=== PATIENT | male | born 1965 | race Caucasian/White ===

== ENCOUNTER 2016-12-01 13:08 | Emergency (ER) | payer BC ==
[2016-12-01 13:27] VITALS: BP 169/102
--- NOTE | 2016-12-01 13:38 | UC ---
Cardiac HPI - HPI Summary HPI Summary: The patient comes in today for: 1. Chest pain: Onset: Since last night. Palliative/provocative: Taking a deep breath--gets worse--gets sharp Quality: Ache last night--ache, but now a "pulled muscle." Region: Left chest with no radiation. Severity: 4/10 at this time. Time: Constant Associated symptoms: Fevers: None. Cough: None now. Dyspnea: None. Previous lung disease: Asthma, but he does not use the inhaler much. Previous heart disease: None. Previous blood clotting problems: None. CAD risk factors: HTN: (-), DM: (-), Fm Hx: (-), smoker: (+), Cholesterol: (? ) * - History of Current Complaint Chief Complaint: UCChestPain Stated Complaint: CHEST PAIN,HURTS TO BREATHE Time Seen by Provider: 12/01/16 13:20 Hx Obtained From: Patient - Allergy/Home Medications Allergies/Adverse Reactions: Allergies Allergy/AdvReac Type Severity Reaction Status Date / Time Penicillins AdvReac Severe Vomiting Verified 12/01/16 13:19 Home Medications: Home Medications NK [No Home Medications Reported] 12/01/16 [History Confirmed 12/01/16] PMH/Surg Hx/FS Hx/Imm Hx Previously Healthy: No Endocrine History Of: Denies: Diabetes, Thyroid Disease, Hyperthyroidism, Hypothyroidism, Dyslipidemia Cardiovascular History Of: Denies: Cardiac Disorders, Hypertension, Pacemaker/ICD, Myocardial Infarction , Congestive Heart Failure, Atrial Fibrillation, Deep Vein Thrombosis, Bleeding Disorders Respiratory History Of: Reports: Asthma Denies: COPD, Bronchitis, Pneumonia, Pulmonary Embolism GI/ History Of: Denies: Gastroesophageal Reflux, Ulcer, Gastrointestinal Bleed, Gall Bladder Disease, Kidney Stones, Diverticulitis, Renal Disease, Urosepsis Neurological History Of: Denies: TIA, CVA, Dementia, Seizures, Migraine Psychological History Of: Denies: Anxiety, Depression, Bipolar Disorder, Schizophrenia, Post Traumatic Stress Disorder Cancer History Of: Denies: Lung Cancer, Colorectal Cancer, Breast Cancer, Prostate Cancer, Cervical Cancer Other History Of: Negative For: HIV, Hepatitis B, Hepatitis C, Anticoagulant Therapy - Surgical History Surgical History: Yes Surgery Procedure, Year, and Place: 1990 [facility]AL TUNNEL REPAIR BILATERALLY/ RT HAND REPAIR [facility]. ORIF L THUMB [facility]. 2001 RT HAND INJURY [facility]. left ankle tendon repair - Family History Known Family History: Positive: Cardiac Disease, Hypertension - Social History Occupation: Employed Full-time Alcohol Use: Occasionally Substance Use Type: None Smoking Status (MU): Heavy Every Day Tobacco Smoker Type: Cigarettes Amount Used/How Often: 1 PPD Length of Time of Smoking/Using Tobacco: 25 years Have You Smoked in the Last Year: Yes - Immunization History Most Recent Influenza Vaccination: Not UTD Review of Systems Constitutional: Negative Skin: Negative Eyes: Negative ENT: Negative Respiratory: Negative Cardiovascular: Chest Pain Gastrointestinal: Negative Genitourinary: Negative All Other Systems Reviewed And Are Negative: Yes Physical Exam Triage Information Reviewed: Yes Appearance: Well-Appearing, No Pain Distress, Well-Nourished Vital Signs: Initial Vital Signs Temp 98.1 F 12/01/16 13:21 Pulse 77 12/01/16 13:21 Resp 18 12/01/16 13:21 BP 169/102 12/01/16 13:21 Pulse Ox 97 12/01/16 13:21 Blood pressure (prior to discharge): sitting, large cuff, left arm: 152/82 Vital Signs Reviewed: Yes Eyes: Positive: Conjunctiva Clear. Negative: Discharge ENT: Positive: Hearing grossly normal. Negative: Pharyngeal erythema, Nasal congestion, Nasal drainage, TM bulging, TM dull, TM red, Tonsillar swelling, Tonsillar exudate Dental: Positive: Gross Decay/Caries @. Negative: Dental Fracture @ Neck: Positive: Supple, No Lymphadenopathy. Negative: Nuchal Rigidity Respiratory: Positive: Chest non-tender, Lungs clear, No respiratory distress, No accessory muscle use. Negative: Crackles, Wheezing Cardiovascular: Positive: RRR, No Murmur Abdomen Description: Positive: Nontender, No Organomegaly, Soft. Negative: Distended, Guarding Musculoskeletal: Positive: Strength Intact, ROM Intact, No Edema, Other: - He has tenderness at the upper left sternal border. Pressing on this area does totally reproduce his chest pain. Neurological: Positive: Alert, Muscle Tone Normal Psychological: Positive: Age Appropriate Behavior, Consolable Skin: Negative: rashes, breakdown Diagnostics - Laboratory Diagnostic Studies Completed/Ordered: EKG: Rate: 78. Rhythm: Sinus. Ectopy: None. Acute changes: None. - Radiology No standard instances Xray Interpretation: No Acute Changes Radiology Interpretation Completed By: Radiologist - Assessment/Plan Course Of Treatment: Patient was told that his chest pain was most likely due to costochondritis. He is encouraged to take NSAIDs for relief. - Clinical Impression Provider Diagnoses: Chest wall pain. Discharge - Discharge Plan Condition: Stable Disposition: HOME Patient Education Materials: Chest Wall Pain (ED) Referrals: Bishnu Walton MD [Primary Care Provider] - 1 Week (Please see your primary care provider in about three days to a week to see how well you are doing. If you don't have a primary care provider, please contact the physician referral service. If you can't get in timely, please you may come back to see us until you can. If you get worse, please be seen sooner by us or the ER.)
--- NOTE | 2016-12-01 14:06 | RAD ---
INDICATION: Chest pain COMPARISON: None TECHNIQUE: PA and lateral dual-energy views were obtained. FINDINGS: Bones/Soft Tissues: There are no acute bony findings. Cardiomediastinal: The cardiomediastinal silhouette is normal. Lungs: There are no infiltrates. Pleura: There are no pleural effusions. Other: None IMPRESSION: NO ACTIVE DISEASE.
== END 2016-12-01 14:57 | disposition home or self-care (01) ==
LOC: UCEAST 13:08
DX: R07.89 Other chest pain (principal); F17.210 Nicotine dependence, cigarettes, uncomplicated; Z88.0 Allergy status to penicillin
CPT/HCPCS: 71020; 93005; 99212; G0463

== ENCOUNTER 2016-12-02 11:39 | Emergency (ER) | payer BC ==
[2016-12-02] MEDS ORDERED: Aspirin Low Dose CHEW TAB* 81 MG PO ONE (12:06)
[2016-12-02] MEDS ORDERED: NS 0.9% 1000 ML* 1,000 ML IV ONE (12:07)
[2016-12-02 12:12] VITALS: BP 180/106
--- NOTE | 2016-12-02 16:04 | UC ---
guillermina Jasmine Timothy, scribed for Audrey Mead MD on 12/02/16 at 1154 . Cardiac HPI - HPI Summary HPI Summary: Derek Mckinney is a 50 yo male presenting to [facility] with 4/10 upper left chest pressure and left shoulder pain since 11/30/16, steadily increasing. He states pressure is worth with deep breaths or coughing. He denies SOB, nausea, diaphoresis, dizziness. He was seen last night for similar Sx, except the pain has now moved into his shoulder. He received a CXR last night, which showed no acute disease. His MHx includes asthma and tobacco use. - History of Current Complaint Stated Complaint: CHEST AND SHOULDER PAIN Time Seen by Provider: 12/02/16 12:01 Hx Obtained From: Patient Onset/Duration: Gradual Onset, Lasting Days Timing: Constant Initial Severity: Moderate Current Severity: Moderate Pain Intensity: 4 Chest Pain Location: Diffuse Character: Pressure/Squeezing Aggravating: Deep Breaths Alleviating: Nothing Associated Signs & Symptoms: Positive: Negative - Risk Factors Pulmonary Embolism Risk Factors: Negative Cardiac Risk Factors: Smoking AMI/ACS Risk Factors: Smoking - Allergy/Home Medications Allergies/Adverse Reactions: Allergies Allergy/AdvReac Type Severity Reaction Status Date / Time Penicillins AdvReac Severe Vomiting Verified 12/01/16 13:19 PMH/Surg Hx/FS Hx/Imm Hx Respiratory History Of: Reports: Asthma Cancer History Of: Denies: Lung Cancer, Colorectal Cancer, Breast Cancer, Prostate Cancer, Cervical Cancer Other History Of: Negative For: HIV, Hepatitis B, Hepatitis C, Anticoagulant Therapy - Surgical History Surgical History: Yes Surgery Procedure, Year, and Place: 1990 [facility] CAR[facility]AL TUNNEL REPAIR BILATERALLY/ RT HAND REPAIR [facility]. ORIF L THUMB [facility]. 2001 RT HAND INJURY [facility]. left ankle tendon repair - Family History Known Family History: Positive: Cardiac Disease, Hypertension - Social History Alcohol Use: Occasionally Substance Use Type: None Smoking Status (MU): Heavy Every Day Tobacco Smoker Type: Cigarettes Amount Used/How Often: 1 PPD Length of Time of Smoking/Using Tobacco: 25 years Have You Smoked in the Last Year: Yes - Immunization History Most Recent Influenza Vaccination: Not UTD Review of Systems Constitutional: Negative Skin: Negative Eyes: Negative ENT: Negative Respiratory: Cough Cardiovascular: Chest Pain Gastrointestinal: Negative Genitourinary: Negative Motor: Negative Neurovascular: Negative Musculoskeletal: Other: - left shoulder pain Neurological: Negative Psychological: Negative All Other Systems Reviewed And Are Negative: Yes Physical Exam Triage Information Reviewed: Yes Appearance: No Pain Distress, Well-Nourished, Ill-Appearing Vital Signs: Initial Vital Signs Temp 98.3 F 12/02/16 12:03 Pulse 77 12/02/16 12:03 Resp 18 12/02/16 12:03 BP 180/106 12/02/16 12:03 Pulse Ox 94 12/02/16 12:03 Vital Signs Reviewed: Yes Eyes: Positive: Conjunctiva Clear ENT: Positive: Hearing grossly normal Neck: Positive: Supple, Nontender Respiratory: Positive: Lungs clear, Normal breath sounds, No respiratory distress. Negative: Chest non-tender - reproducible CP at 3rd and 4th ribs Cardiovascular: Positive: RRR, No Murmur, Pulses Normal, Brisk Capillary Refill Abdomen Description: Positive: Nontender, No Organomegaly, Soft Bowel Sounds: Positive: Present Musculoskeletal: Positive: Strength Intact, ROM Intact Neurological: Positive: Alert, Muscle Tone Normal Psychological Exam: Normal Skin Exam: Normal Diagnostics - EKG Cardiac Rate: NL - NSR @ 81 BPM normal AV/IV conduction time, normal axis, no acute changes, no change compared to 12/01/16 Cardiac Rhythm: Sinus: Normal Re-Evaluation - Re-Evaluation First Eval Re-Evaluation Time: 12:13 Change: Unchanged Comment: Informed Pt of consult with [facility] and that ambulance will be arriving shortly. - Assessment/Plan Course Of Treatment: Derek Mckinney is a 50 yo male presenting to [facility] with CP and left shoulder pain. After clinical examination, review of his EKG, and review of his prior MHx, he will be transferred to [facility] for further evaluation and higher level of care. - Differential Diagnoses - Chest Pain Differential Diagnosis/HQI/PQRI: Acute NH, ACS, Angina, Chest Wall, GI Disease - Clinical Impression Provider Diagnoses: tobacco abuse disorder - Physician Notifications Discussed Patient Care With: 1204 - Dr. Morales ([facility]) - discussed Pt condition , agreed to see in [facility]. 1206 - [facility] amb[facility] - discussed Pt condition, requested emergency transport Instructed by Provider To: MD Will See In ED Discharge - Discharge Plan Condition: Stable Disposition: [facility]ANS [facility] Discharge Disposition Comment: transferred to [facility] for higher level of care Referrals: Bishnu Walton MD [Primary Care Provider] - The documentation as recorded by the guillermina bianchi Timothy accurately reflects the service I personally performed and the decisions made by me, Audrey Mead MD.
== END 2016-12-02 12:40 | disposition short-term general hospital (02) ==
LOC: UCEAST 11:39
DX: R07.89 Other chest pain (principal); M25.512 Pain in left shoulder; Z88.0 Allergy status to penicillin; F17.210 Nicotine dependence, cigarettes, uncomplicated
CPT/HCPCS: 93005; 96360; 99213; A9270-GY; G0463

== ENCOUNTER 2016-12-02 12:50 | Emergency (ER) | payer BC ==
[2016-12-02] MEDS ORDERED: methylPREDNISolone 125 MG* 2 ML VIAL IV ONE (12:59)
[2016-12-02 13:37] LABS: Hematocrit 44 % (42-52); Hemoglobin 14.7 g/dl (14.0-18.0); Mean Corpuscular HGB Conc 33 g/dl (31-36); Mean Corpuscular Hemoglobin 31 pg (27-31); Mean Corpuscular Volume 94 fL (80-94); Mean Platelet Volume 8 um3 (7.4-10.4); Red Blood Count 4.71 10^6/ul (4.0-5.4); Red Cell Distribution Width 13 % (10.5-15); White Blood Count 11.5 10^3/ul (3.5-10.8)
[2016-12-02 13:55] LABS: Albumin 4.1 g/dL (3.2-5.2); BUN/Creatinine Ratio 12.7 (8-20); Calcium 9.2 mg/dL (8.6-10.3); EGFR African American 134.1 (>60); EGFR Non-African American 104.2 (>60); Potassium 3.9 mmol/L (3.5-5.0); Total Bilirubin 0.5 mg/dL (0.2-1.0); Total Protein 7.1 g/dL (6.4-8.9)
[2016-12-02 15:27] VITALS: BP 148/100
--- NOTE | 2016-12-02 21:30 | ED ---
I, Raj,Saleem, scribed for Cristobal Huizar MD on 12/02/16 at 1312 . HPI Chest Pain - HPI Summary HPI Summary: This 50 y/o male presents to ED from [facility] with chief complaint of left anterior CP radiating to LUE. Pain is constant and waxing and waning since 2 days ago. 1x ASA given [employer]. Pt had recent cold symptoms a week ago, and reports productive cough with white phlegm. Negative calf pain. Pt was last seen at [facility] yesterday and sent home with naproxen. Deep breath and cough make the pain worse. Arm movement makes the pain somewhat better per pt. No primary care is established, and last pt's medical visit was ~ 2 years ago. FHx is positive for HTN to father. Hegative FHx of blood clots. He is a current smoker and rare drinker. No drug abuse. 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 Medical records from [facility] reviewed. CXR is normal with negative sign of PTX. EKG is SNR without ischemic changes. - History of Current Complaint Time Seen by Provider: 12/02/16 12:51 Hx Obtained From: Patient, EMS, Medical Records Onset/Duration: Started Days Ago - 2 hours, Atraumatic, Still Present Timing: Constant Chest Pain Location: Left Anterior Chest Pain Radiates: Yes Chest Pain Radiates To:: Arm - LUE Character: Cough, Productive Aggravating Factor(s): Deep Breaths, Other: - coughing Alleviating Factor(s): Nothing Associated Signs and Symptoms: Positive: Chest Pain, Productive Cough. Negative : Fever - Allergy/Home Medications Allergies/Adverse Reactions: Allergies Allergy/AdvReac Type Severity Reaction Status Date / Time Penicillins AdvReac Severe Vomiting Verified 12/01/16 13:19 PMH/Surg Hx/FS Hx/Imm Hx Endocrine/Hematology History: Denies: Hx Anticoagulant Therapy, Hx Diabetes, Hx Thyroid Disease Cardiovascular History: Denies: Hx Congestive Heart Failure, Hx Deep Vein Thrombosis, Hx Hypertension , Hx Myocardial Infarction, Hx Pacemaker/ICD Respiratory History: Reports: Hx Asthma Denies: Hx Chronic Obstructive Pulmonary Disease (COPD), Hx Lung Cancer, Hx Pneumonia, Hx Pulmonary Embolism GI History: Denies: Hx Gall Bladder Disease, Hx Gastrointestinal Bleed, Hx Ulcer, Hx Urosepsis History: Denies: Hx Kidney Stones, Hx Renal Disease Sensory History: Denies: Hx Contacts or Glasses, Hx Hearing Aid Opthamlomology History: Denies: Hx Contacts or Glasses Neurological History: Denies: Hx Dementia, Hx Migraine, Hx Seizures, Hx Transient Ischemic Attacks (TIA) Psychiatric History: Denies: Hx Anxiety, Hx Depression, Hx Panic Disorder, Hx Schizophrenia, Hx Bipolar Disorder - Surgical History Surgery Procedure, Year, and Place: 1990 [facility] CAR[facility]AL TUNNEL REPAIR BILATERALLY/ RT HAND REPAIR [facility]. ORIF L THUMB [facility]. 2001 RT HAND INJURY [facility]. left ankle tendon repair Hx Anesthesia Reactions: No Infectious Disease History: Denies: History Other Infectious Disease, Traveled Outside the [place] in Last 30 Days - Family History Known Family History: Positive: Hypertension - father Negative: Cardiac Disease - uncles with cardiac dz in late 60s. - Social History Occupation: Employed Full-time Alcohol Use: Occasionally Hx Substance Use: No Substance Use Type: Reports: None Hx Tobacco Use: Yes Smoking Status (MU): Heavy Every Day Tobacco Smoker Type: Cigarettes Amount Used/How Often: 1 PPD Length of Time of Smoking/Using Tobacco: 25 years Have You Smoked in the Last Year: Yes Review of Systems Negative: Fever Positive: Shortness Of Breath, Cough - productive cough with white phlegm Negative: Anxious, Depressed All Other Systems Reviewed And Are Negative: Yes Physical Exam - Summary Physical Exam Summary: General: Comfortable, pleasant, alert. Smiling. No distress HEENT: Moist mucosa Neck: soft, supple, no adenopathy, no edema Heart: S1, S2, RRR, no murmurs, rubs, or gallops. Chest wall tenderness at left anterior chest, clearly reproducible by palpation. Pt actually jumps when palpated. Lungs: Clear to auscultation, breathing comfortable, no wheezes or rales Abdominal: Soft, flat, nontender Extremities: No pitting edema, no calf tenderness. Negative Darrell's bilat. Neuro: Alert and oriented x 3 Psych: Logical, coherent Triage Information Reviewed: Yes Vital Signs On Initial Exam: Initial Vitals Temp Pulse Resp BP Pulse Ox 97.8 F 78 18 160/96 95 12/02/16 13:38 12/02/16 13:38 12/02/16 13:38 12/02/16 13:38 12/02/16 13:38 Vital Signs Reviewed: Yes Diagnostics - Vital Signs Vital Signs Temp Pulse Resp BP Pulse Ox 12/02/16 15:26 74 18 148/100 12/02/16 14:15 71 18 144/86 94 12/02/16 13:38 97.8 F 78 18 160/96 95 - Laboratory Lab Results: Lab Results 12/02/16 12/02/16 Range/Units 13:30 13:30 WBC 11.5 H (3.5-10.8) 10^3/ul RBC 4.71 (4.0-5.4) 10^6/ul Hgb 14.7 (14.0-18.0) g/dl Hct 44 (42-52) % MCV 94 (80-94) fL MCH 31 (27-31) pg MCHC 33 (31-36) g/dl RDW 13 (10.5-15) % Plt Count 235 (150-450) 10^3/ul MPV 8 (7.4-10.4) um3 Neut % (Auto) 73.4 (38-83) % Lymph % (Auto) 18.0 L (25-47) % Johnson % (Auto) 6.9 (1-9) % Eos % (Auto) 1.5 (0-6) % Baso % (Auto) 0.2 (0-2) % Absolute Neuts (auto) 8.4 H (1.5-7.7) 10^3/ul Absolute Lymphs (auto) 2.1 (1.0-4.8) 10^3/ul Absolute Monos (auto) 0.8 (0-0.8) 10^3/ul Absolute Eos (auto) 0.2 (0-0.6) 10^3/ul Absolute Basos (auto) 0 (0-0.2) 10^3/ul Absolute Nucleated RBC 0 10^3/ul Nucleated RBC % 0 Sodium 134 (133-145) mmol/L Potassium 3.9 (3.5-5.0) mmol/L Chloride 106 (101-111) mmol/L Carbon Dioxide 25 (22-32) mmol/L Anion Gap 3 (2-11) mmol/L BUN 10 (6-24) mg/dL Creatinine 0.79 (0.67-1.17) mg/dL Est GFR ( Amer) 134.1 (>60) Est GFR (Non-Af Amer) 104.2 (>60) BUN/Creatinine Ratio 12.7 (8-20) Glucose 86 (70-100) mg/dL Calcium 9.2 (8.6-10.3) mg/dL Total Bilirubin 0.50 (0.2-1.0) mg/dL AST 15 (13-39) U/L ALT 14 (7-52) U/L Alkaline Phosphatase 52 (34-104) U/L Troponin I 0.00 (<0.04) ng/mL Total Protein 7.1 (6.4-8.9) g/dL Albumin 4.1 (3.2-5.2) g/dL Globulin 3.0 (2-4) g/dL Albumin/Globulin Ratio 1.4 (1-3) Result Diagrams: 12/02/16 13:30 12/02/16 13:30 Lab Statement: Any lab studies that have been ordered have been reviewed, and results considered in the medical decision making process. Chest Pain Course/Dx - Course Assessment/Plan: He had continuous CP for 24+ hours. It is exacerbated by deep breah, palpation, coughing but does not improved by leaning forward. This follows a URI/viral 1 week ago. This is most consistent with costochondritis and mild pleurisy. No Hx or FHx of cardiac dz. Only risk factor is smoking. 160/ 96, and therefore pt may have undiagnosed HTN as well. Regardless, this does not sound like cardiac in anyway. 3 EKGs are taken and noted normal. Trop is normal as well. I don't believe that the repeat trop is necessary given the fact that the pt has had this symptoms for 24 hours. We considered cardaic etiologies, PTX, pericarditis, PE, PNA. PE is also unlikely given the fact that there is no evidence for DVT or SOB or tachycardia. He is to return to ED with any returning and/or worsening symptoms. Otherwiese he will attempt to find primary care doctor. - Chest Pain Differential Diagnosis/HQI/PQRI: Acute [place], Angina, Aortic Aneurysm, CHF, Chest Wall, GI Disease, Lower Respiratory Infection, Pulmonary Edema, Pulmonary Embolism - Diagnoses Provider Diagnoses: Costochondritis, acute Discharge - Discharge Plan Condition: Good Disposition: HOME Prescriptions: Methylprednisolone [Medrol Dosepak 4 MG*] 4 mg PO .SEE JULIO CESAR INSTRUCTION #21 tab Patient Education Materials: Costochondritis (ED) Forms: *Work Release Referrals: [facility] [Outside] Bishnu Walton MD [Primary Care Provider] - The documentation as recorded by the Raj bianchi Soohyun accurately reflects the service I personally performed and the decisions made by me, Cristobal Huizar MD.
== END 2016-12-02 15:26 | disposition home or self-care (01) ==
LOC: ED 12:50
DX: M94.0 Chondrocostal junction syndrome [Tietze] (principal); F17.210 Nicotine dependence, cigarettes, uncomplicated; Z88.0 Allergy status to penicillin
CPT/HCPCS: 36415; 80053; 84484; 85025; 93005; 96360; 99213; 99282; A9270-GY; G0463

== ENCOUNTER 2017-05-02 21:32 | Emergency (ER) | payer BC ==
[2017-05-02 21:43] VITALS: BP 194/96
[2017-05-02] MEDS ORDERED: ceFAZolin 500 MG VIAL(*) 500 MG VIAL IM ONE (22:03)
[2017-05-02] MEDS ORDERED: Tetan/Diph/Pertus SYR(Tdap)* 0.5 ML SYR(BOOSTRIX) use SYR IM ONE (22:04)
[2017-05-02] MEDS ORDERED: Lidocaine 1% MPF* 2 ML VIAL ONE (22:10)
--- NOTE | 2017-05-27 15:11 | UC ---
Coleman Jasmine Rebecca, scribed for Chasity Lindsey MD on 05/02/17 at 2148 . Lower Extremity/Ankle HPI - HPI Summary HPI Summary: Pt is a 16 y/o M who presents to [facility] c/o R knee pain, swelling and erythema. Sx began today at 1830 after showering and have been constant since onset. Associated pain is currently moderate, ranked 5/10 and characterized as an ache and stiffness. Sx aggravated and alleviated by nothing. Additionally c/o R ear pain and L arm rash for a few days. Denies sore throat, cough. Last Tetanus shot was >5 years ago, stating "it's been a while." No PMHx or FHx DM. Allergy to Penicillin causes N/V. - History of Current Complaint Chief Complaint: UCLowerExtremity Stated Complaint: KNEE SWELLING W PAIN,BUG BITE RASH ON ARM Time Seen by Provider: 05/02/17 21:46 Hx Obtained From: Patient Onset/Duration: Lasting Hours, Still Present Severity Currently: Moderate Pain Intensity: 5 Pain Scale Used: 0-10 Numeric Aggravating Factor(s): Nothing Alleviating Factor(s): Nothing - Allergies/Home Medications Allergies/Adverse Reactions: Allergies Allergy/AdvReac Type Severity Reaction Status Date / Time Penicillins AdvReac Severe Vomiting Verified 05/02/17 21:43 Home Medications: Home Medications Ibuprofen [Advil Migraine] 400 mg PO PRN 05/02/17 [History] PMH/Surg Hx/FS Hx/Imm Hx Previously Healthy: No Respiratory History: Asthma Other History Of: Negative For: HIV, Hepatitis B, Hepatitis C, Anticoagulant Therapy - Surgical History Surgical History: Yes Surgery Procedure, Year, and Place: 1990 [facility] CAR[facility]AL TUNNEL REPAIR BILATERALLY/ RT HAND REPAIR [facility]. ORIF L THUMB [facility]. 2001 RT HAND INJURY [facility]. left ankle tendon repair - Family History Known Family History: Positive: Hypertension - father Negative: Cardiac Disease - uncles with cardiac dz in late 60s. , Diabetes - Social History Alcohol Use: Occasionally Substance Use Type: None Smoking Status (MU): Heavy Every Day Tobacco Smoker Type: Cigarettes Amount Used/How Often: 1 PPD Length of Time of Smoking/Using Tobacco: 25 years Have You Smoked in the Last Year: Yes - Immunization History Most Recent Influenza Vaccination: Not UTD Review of Systems Constitutional: Negative Skin: Other - R knee erythema and swelling; LUE rash Eyes: Negative ENT: Ear Ache - Right Respiratory: Negative Cardiovascular: Negative Gastrointestinal: Negative Genitourinary: Negative Motor: Negative Neurovascular: Negative Musculoskeletal: Arthralgia - R knee pain Neurological: Negative Psychological: Negative All Other Systems Reviewed And Are Negative: Yes Physical Exam Triage Information Reviewed: Yes Appearance: Well-Appearing Vital Signs: Initial Vital Signs Temp 98.6 F 05/02/17 21:39 Pulse 85 05/02/17 21:39 Resp 18 05/02/17 21:39 BP 194/96 05/02/17 21:39 Pulse Ox 97 05/02/17 21:39 Vital Signs Reviewed: Yes Eye Exam: Normal ENT: Positive: Pharyngeal erythema, Other: - Fluid in the R ear Respiratory Exam: Normal Respiratory: Positive: Chest non-tender, Lungs clear, Normal breath sounds, No respiratory distress Cardiovascular Exam: Normal Cardiovascular: Positive: RRR, No Murmur, Pulses Normal, Brisk Capillary Refill Musculoskeletal: Positive: Strength Intact, ROM Intact, Other: - see below. L arm with small round ring shaped eruption, suspicous fungal Neurological Exam: Normal - Nonfocal, grossly intact Psychological Exam: Normal - Conversing easily and appropriately Skin: Positive: Other - Redness extending above the patella that is approx 19 cm length by 12 cm width and warm to touch Lower Extremity Course/Dx - Course Course Of Treatment: S/sx c/w cellulitis. No joint discomfort and able to walk. IM ancef in [facility]. Rx clindamycin. D/w pt need for f/u, and should go to ED for worse or new problems in the meantime. Questions answered to the best of my ability. - Differential Dx/Diagnosis Provider Diagnoses: Cellulitis. Ringworm left forearm Discharge - Discharge Plan Condition: Stable Disposition: HOME Prescriptions: Clotrimazole 1% CREAM* [Clotrimazole 1%*] 1 applic TOPICAL BID #1 tube Patient Education Materials: Cellulitis (ED) Referrals: [facility] [Outside] (Follow up next week, if possible. ) Additional Instructions: You received a 500 mg injection of antibiotic (Kefzol). Avoid rubbing alcohol, hydrogen peroxide and after-shave. Please follow up with your primary care provider next week if possible. Seek medical attention for worse or new problems in the meantime. The documentation as recorded by the scribe, DiFabio,Jacqueline accurately reflects the service I personally performed and the decisions made by me, Chasity Lindsey MD.
== END 2017-05-02 22:36 | disposition home or self-care (01) ==
LOC: UCEAST 21:32
DX: L03.115 Cellulitis of right lower limb (principal); B35.4 Tinea corporis; Z23 Encounter for immunization; J45.909 Unspecified asthma, uncomplicated; Z88.0 Allergy status to penicillin; F17.210 Nicotine dependence, cigarettes, uncomplicated
CPT/HCPCS: 90471; 96372; 99212; G0463; J0690

== ENCOUNTER 2017-05-03 12:18 | Emergency (ER) | payer BC ==
[2017-05-03] MEDS ORDERED: NS 0.9% 1000 ML* 1,000 ML IV ONE (13:47)
[2017-05-03] MEDS ORDERED: DOXYcycline IV* 100 MG in NS 0.9% 250 ML* 250 ML IVPB ONE (13:49)
[2017-05-03] MEDS ORDERED: NS 0.9% 250 ML* 250 ML ONE (14:17)
--- NOTE | 2017-05-03 14:29 | RAD ---
INDICATION: Pain and swelling at the right knee COMPARISON: None TECHNIQUE: 2 view radiograph of the right knee. FINDINGS: Depicted on the lateral view radiograph there is induration and thickening of the subcutaneous tissue overlying the knee joint. The visualized bones are well-corticated and properly aligned. The joint spaces are properly maintained. There is no definite intra-articular effusion. No fracture or dislocation is visualized. IMPRESSION: Lateral view of the right knee appendix thickening and induration of the subcutaneous tissue without radiographically apparent acute bony abnormality or large intra-articular joint effusion. If the patient's symptoms persist, follow-up imaging is recommended.
[2017-05-03 14:37] LABS: Hematocrit 45 % (42-52); Mean Corpuscular HGB Conc 34 g/dl (31-36); Mean Corpuscular Hemoglobin 32 pg (27-31); Mean Corpuscular Volume 96 fL (80-94); Mean Platelet Volume 9 um3 (7.4-10.4); Red Blood Count 4.67 10^6/ul (4.0-5.4); Red Cell Distribution Width 13 % (10.5-15); White Blood Count 14.2 10^3/ul (3.5-10.8)
[2017-05-03 14:52] LABS: Albumin 4.2 g/dL (3.2-5.2); BUN/Creatinine Ratio 14.3 (8-20); C Reactive Protein 32.5 mg/L (< 5.00); Calcium 9.3 mg/dL (8.6-10.3); EGFR African American 113.4 (>60); EGFR Non-African American 88.2 (>60); Potassium 4.1 mmol/L (3.5-5.0); Total Bilirubin 0.5 mg/dL (0.2-1.0); Total Protein 7.2 g/dL (6.4-8.9)
[2017-05-03 16:34] VITALS: BP 157/86
--- NOTE | 2017-05-03 18:35 | ED ---
Nicole Jasmine Auryana, scribed for Raul Cevallos MD on 05/03/17 at 1339 . Lower Extremity - HPI Summary HPI Summary: 51 year old male presents with increased erythema and swelling of the right knee starting 1 day ago worse since today. Patient was seen at [facility] yesterday for the same complaint and was given a tetanus vaccine, dose of ABX, and sent home with an ABX script. He has taken 2 doses of the ABX and reports increased swelling and erythema since then. He reports pain with flexion/extension of the knee and has developed a low grade fever today. He reports that he just noticed a red conrad just below the knee last night but reports that he hadn't noticed it before. He denies any chills, cough, rhinorrhea, sore throat, abdominal pain, or any joint pain. Patient reports that he is unsure of the source of possible infection. He denies any recent tick bites but does state that [place] and has pets. He also states that he is currently being treated for ring worm on his left arm. PMHx is significant for asthma. SHx is significant for tobacco use. - History of Current Complaint Chief Complaint: EDExtremityLower Stated Complaint: RT LEG PAIN/SWELLING/INFECTION Time Seen by Provider: 05/03/17 13:07 Hx Obtained From: Patient Mechanism Of Injury: Unknown Onset of Pain: Days - 1 Onset/Duration: Still Present - today Severity Initially: Mild Severity Currently: Moderate Pain Intensity: 4 Pain Scale Used: 0-10 Numeric Timing: Constant Location: Is Discrete @ - right knee Associated Signs And Symptoms: Positive: Swelling - increased, Redness - increased, Fever - low grade, Knee Pain - increased right knee pain Aggravating Factor(s): Movement - flexion and extension Able to Bear Weight: Yes - with pain - Allergies/Home Medications Allergies/Adverse Reactions: Allergies Allergy/AdvReac Type Severity Reaction Status Date / Time Penicillins AdvReac Severe Vomiting Verified 05/02/17 21:43 PMH/Surg Hx/FS Hx/Imm Hx Endocrine/Hematology History: Denies: Hx Anticoagulant Therapy, Hx Diabetes, Hx Thyroid Disease Cardiovascular History: Denies: Hx Congestive Heart Failure, Hx Deep Vein Thrombosis, Hx Hypertension , Hx Myocardial Infarction, Hx Pacemaker/ICD Respiratory History: Reports: Hx Asthma Denies: Hx Chronic Obstructive Pulmonary Disease (COPD), Hx Lung Cancer, Hx Pneumonia, Hx Pulmonary Embolism GI History: Denies: Hx Gall Bladder Disease, Hx Gastrointestinal Bleed, Hx Ulcer, Hx Urosepsis History: Denies: Hx Kidney Stones, Hx Renal Disease Sensory History: Denies: Hx Contacts or Glasses, Hx Hearing Aid Opthamlomology History: Denies: Hx Contacts or Glasses Neurological History: Denies: Hx Dementia, Hx Migraine, Hx Seizures, Hx Transient Ischemic Attacks (TIA) Psychiatric History: Denies: Hx Anxiety, Hx Depression, Hx Panic Disorder, Hx Schizophrenia, Hx Bipolar Disorder - Surgical History Surgery Procedure, Year, and Place: 1990 [facility] CARPAL TUNNEL REPAIR BILATERALLY/ RT HAND REPAIR [facility]. ORIF L THUMB [facility]. 2001 RT HAND INJURY [facility]. left ankle tendon repair Hx Anesthesia Reactions: No Infectious Disease History: No Infectious Disease History: Denies: Hx Clostridium Difficile, Hx Hepatitis, Hx Human Immunodeficiency Virus (HIV), Hx of Known/Suspected MRSA, Hx Shingles, Hx Tuberculosis, Hx Known/ Suspected VRE, Hx Known/Suspected VRSA, History Other Infectious Disease, Traveled Outside the [place] in Last 30 Days - Family History Known Family History: Positive: Hypertension - father Negative: Cardiac Disease - uncles with cardiac dz in late 60s. - Social History Occupation: Employed Full-time Alcohol Use: Occasionally Hx Substance Use: No Substance Use Type: Reports: None Hx Tobacco Use: Yes Smoking Status (MU): Heavy Every Day Tobacco Smoker Type: Cigarettes Amount Used/How Often: 1 PPD Length of Time of Smoking/Using Tobacco: 25 years Have You Smoked in the Last Year: Yes Review of Systems Positive: Fever - reprots low grade fever. Negative: Chills Eyes: Negative ENT: Negative Negative: Sore Throat, Nasal Discharge Cardiovascular: Negative Respiratory: Negative Negative: Cough Gastrointestinal: Negative Negative: Abdominal Pain Genitourinary: Negative Positive: Myalgia - knee pain with flexion/extension , Other - right knee swelling, and redness Positive: Other - ringworm on left arm Neurological: Negative Psychological: Normal All Other Systems Reviewed And Are Negative: Yes Physical Exam - Summary Physical Exam Summary: The patient is well-nourished in no acute distress and in no acute pain. The skin is warm and dry and skin color reflects adequate perfusion. HEENT: The head is normocephalic and atraumatic. The pupils are equal and reactive. The conjunctivae are clear and without drainage. Nares are patent and without drainage. Mouth reveals moist mucous membranes and the throat is without erythema and exudate. The external ears are intact. The ear canals are patent and without drainage. The tympanic membranes are intact. Neck is supple with full range of motion and non-tender. There are no carotid bruits. There is no neck vein distension. Respiratory: Chest is non-tender. Lungs are clear to auscultation and breath sounds are symmetrical and equal. Cardiovascular: Heart is tachycardic and rhythm. There is no murmur or rub auscultated. There is no peripheral edema and pulses are symmetrical and equal. Abdomen: The abdomen is soft and non-tender. There are normal bowel sounds heard in all four quadrants and there is no organomegaly palpated. Musculoskeletal: There is no back pain noted. Examination of the right knee shows erythema over the knee cap with questionale effusion. There is decreased flexion and extension of the right knee. The right knee is red and warm to touch with an eara below that is dark red and may be a darker red in the center. There is a pruritic lesion on the left arm that is dark red with a clearing in the center - currently being treated for tinea. There is good capillary refill and good pulses distally. There is no peripheral edema or calf tenderness elicited. Neurovascularly intact. Neurological: Patient is alert and oriented to person, place and time. The patient has symmetrical motor strength in all four extremities. Cranial nerves are grossly intact. Deep tendon reflexes are symmetrical and equal in all four extremities. Psychiatric: The patient has an appropriate affect and does not exhibit any anxiety or depression. Triage Information Reviewed: Yes Vital Signs On Initial Exam: Initial Vitals Temp Pulse Resp BP Pulse Ox 99.1 F 97 20 167/91 96 05/03/17 12:31 05/03/17 12:31 05/03/17 12:31 05/03/17 12:31 05/03/17 12:31 Vital Signs Reviewed: Yes Diagnostics - Vital Signs Vital Signs Temp Pulse Resp BP Pulse Ox 05/03/17 12:35 99.1 F 95 20 167/91 98 05/03/17 12:31 99.1 F 97 20 167/91 96 - Laboratory Lab Results: Lab Results 05/03/17 05/03/17 05/03/17 Range/Units 14:15 14:15 14:15 WBC 14.2 H (3.5-10.8) 10^3/ul RBC 4.67 (4.0-5.4) 10^6/ul Hgb 15.0 (14.0-18.0) g/dl Hct 45 (42-52) % MCV 96 H (80-94) fL MCH 32 H (27-31) pg MCHC 34 (31-36) g/dl RDW 13 (10.5-15) % Plt Count 230 (150-450) 10^3/ul MPV 9 (7.4-10.4) um3 Neut % (Auto) 75.5 (38-83) % Lymph % (Auto) 12.7 L (25-47) % [place] % (Auto) 9.3 H (1-9) % Eos % (Auto) 1.4 (0-6) % Baso % (Auto) 1.1 (0-2) % Absolute Neuts (auto) 10.7 H (1.5-7.7) 10^3/ul Absolute Lymphs (auto) 1.8 (1.0-4.8) 10^3/ul Absolute Monos (auto) 1.3 H (0-0.8) 10^3/ul Absolute Eos (auto) 0.2 (0-0.6) 10^3/ul Absolute Basos (auto) 0.2 (0-0.2) 10^3/ul Absolute Nucleated RBC 0 10^3/ul Nucleated RBC % 0 INR (Anticoag Therapy) 1.03 (0.89-1.11) Sodium 134 (133-145) mmol/L Potassium 4.1 (3.5-5.0) mmol/L Chloride 102 (101-111) mmol/L Carbon Dioxide 28 (22-32) mmol/L Anion Gap 4 (2-11) mmol/L BUN 13 (6-24) mg/dL Creatinine 0.91 (0.67-1.17) mg/dL Est GFR ( Amer) 113.4 (>60) Est GFR (Non-Af Amer) 88.2 (>60) BUN/Creatinine Ratio 14.3 (8-20) Glucose 75 (70-100) mg/dL Lactic Acid (0.5-2.0) mmol/L Calcium 9.3 (8.6-10.3) mg/dL Total Bilirubin 0.50 (0.2-1.0) mg/dL AST 13 (13-39) U/L ALT 12 (7-52) U/L Alkaline Phosphatase 54 (34-104) U/L C-Reactive Protein 32.50 H (< 5.00) mg/L Total Protein 7.2 (6.4-8.9) g/dL Albumin 4.2 (3.2-5.2) g/dL Globulin 3.0 (2-4) g/dL Albumin/Globulin Ratio 1.4 (1-3) / Range/Units 14:15 WBC (3.5-10.8) 10^3/ul RBC (4.0-5.4) 10^6/ul Hgb (14.0-18.0) g/dl Hct (42-52) % MCV (80-94) fL MCH (27-31) pg MCHC (31-36) g/dl RDW (10.5-15) % Plt Count (150-450) 10^3/ul MPV (7.4-10.4) um3 Neut % (Auto) (38-83) % Lymph % (Auto) (25-47) % [place] % (Auto) (1-9) % Eos % (Auto) (0-6) % Baso % (Auto) (0-2) % Absolute Neuts (auto) (1.5-7.7) 10^3/ul Absolute Lymphs (auto) (1.0-4.8) 10^3/ul Absolute Monos (auto) (0-0.8) 10^3/ul Absolute Eos (auto) (0-0.6) 10^3/ul Absolute Basos (auto) (0-0.2) 10^3/ul Absolute Nucleated RBC 10^3/ul Nucleated RBC % INR (Anticoag Therapy) (0.89-1.11) Sodium (133-145) mmol/L Potassium (3.5-5.0) mmol/L Chloride (101-111) mmol/L Carbon Dioxide (22-32) mmol/L Anion Gap (2-11) mmol/L BUN (6-24) mg/dL Creatinine (0.67-1.17) mg/dL Est GFR ( Amer) (>60) Est GFR (Non-Af Amer) (>60) BUN/Creatinine Ratio (8-20) Glucose (70-100) mg/dL Lactic Acid 0.6 (0.5-2.0) mmol/L Calcium (8.6-10.3) mg/dL Total Bilirubin (0.2-1.0) mg/dL AST (13-39) U/L ALT (7-52) U/L Alkaline Phosphatase (34-104) U/L C-Reactive Protein (< 5.00) mg/L Total Protein (6.4-8.9) g/dL Albumin (3.2-5.2) g/dL Globulin (2-4) g/dL Albumin/Globulin Ratio (1-3) Result Diagrams: 05/03/17 14:15 05/03/17 14:15 Lab Statement: Any lab studies that have been ordered have been reviewed, and results considered in the medical decision making process. - Radiology right knee XR Xray Interpretation: Positive (See Comments) - IMPRESSION: Lateral view of the right knee appendix thickening and induration of the subcutaneous tissue without radiographically apparent acute bony abnormality or large intra- articular joint effusion. If the patient's symptoms persist, follow-up imaging is recommended. Radiology Interpretation Completed By: Radiologist Re-Evaluation - Re-Evaluation First Eval Re-Evaluation Time: 16:30 - discussed imaging and plan of action Lower Extremity Course/Dx - Course Assessment/Plan: 51 year old male presents with increased erythema and swelling of the right knee starting 1 day ago worse since today. Patient was seen at [facility] yesterday for the same complaint and was given a tetanus vaccine, dose of ABX, and sent home with an ABX script. He has taken 2 doses of the ABX and reports increased swelling and erythema since then. He reports pain with flexion /extension of the knee and has developed a low grade fever today. He reports that he just noticed a red conrad just below the knee last night but reports that he hadn't noticed it before. He denies any chills, cough, rhinorrhea, sore throat, abdominal pain, or any joint pain. Patient reports that he is unsure of the source of possible infection. He denies any recent tick bites but does state that [place] and has pets. He also states that he is currently being treated for ring worm on his left arm. PMHx is significant for asthma. SHx is significant for tobacco use. In ED course, the patient was given IV fluids and doxycycline. Blood work shows WBC14.2, INR 1.03 , LACTIC ACID 0.6, CRP 32.50. LFT are WNL. Knee XR IMPRESSION: Lateral view of the right knee appendix thickening and induration of the. subcutaneous tissue without radiographically apparent acute bony abnormality or large. intra -articular joint effusion. If the patient's symptoms persist, follow-up imaging is recommended. On re-evaluation, imaging, blood work and plan of action was discussed. The patient agrees with discharge home. Patient will be discharged home with [place] and Doxycycline. Dx: right leg cellulitis, erythema migrans. Patient was given a work note recommending no work until Friday. - Diagnoses Differential Diagnosis/HQI/PQRI: Positive: Cellulitis, Other - erythema migrans , knee effusion Provider Diagnoses: Cellulitis of right leg, Erythema migrans (Lyme disease) Discharge - Discharge Plan Condition: Stable Disposition: HOME Prescriptions: DOXYcycline CAP(*) [DOXYcycline 100MG CAP(*)] 100 mg PO BID #42 cap Hydrocodone-Acetaminophen [[place] 5-325 mg] 1 tab PO Q6HR PRN #20 tab MDD 4 PRN Reason: pain Patient Education Materials: Doxycycline (By mouth), Hydrocodone/Acetaminophen (By mouth), Lyme Disease (ED), Cellulitis (ED) Forms: *Work Release Referrals: [facility] [place] PHYSICIAN REFERRAL [Outside] The documentation as recorded by the Nicole bianchi Auryana accurately reflects the service I personally performed and the decisions made by , Raul Cevallos MD.
== END 2017-05-03 17:00 | disposition home or self-care (01) ==
LOC: ED 12:18
DX: L03.115 Cellulitis of right lower limb (principal); A69.20 Lyme disease, unspecified; F17.210 Nicotine dependence, cigarettes, uncomplicated; J45.909 Unspecified asthma, uncomplicated
CPT/HCPCS: 36415; 80053; 83605; 85025; 85610; 86140; 86618; 87040; 96360; 96361; 99282

== ENCOUNTER 2017-05-04 13:39 | Observation (INO) | payer BC ==
[2017-05-04] MEDS ORDERED: Vancomycin(*) 1,000 MG in NS 0.9% 250 ML* 250 ML IVPB ONE (14:19)
[2017-05-04] MEDS ORDERED: Ciprofloxacin 400MG IVPREMIX(* 400 MG/200 ML BAG IVPB ONE (14:20)
[2017-05-04] MEDS ORDERED: metroNIDAZOLE IV 500 MG/100ML* 500 MG/100 ML BAG IVPB ONE (14:21)
[2017-05-04] MEDS: NS 0.9% 1000 ML* 2,000 ML IV ONE (14:34)
[2017-05-04 14:36] LABS: Hematocrit 44 % (42-52); Hemoglobin 14.6 g/dl (14.0-18.0); Mean Corpuscular HGB Conc 33 g/dl (31-36); Mean Corpuscular Hemoglobin 32 pg (27-31); Mean Corpuscular Volume 97 fL (80-94); Mean Platelet Volume 9 um3 (7.4-10.4); Red Blood Count 4.55 10^6/ul (4.0-5.4); Red Cell Distribution Width 13 % (10.5-15); White Blood Count 12.5 10^3/ul (3.5-10.8)
[2017-05-04 14:46] LABS: BUN/Creatinine Ratio 10.8 (8-20); C Reactive Protein 68.88 mg/L (< 5.00); Calcium 9.4 mg/dL (8.6-10.3); EGFR African American 99.4 (>60); EGFR Non-African American 77.3 (>60); Globulin 3.2 g/dL (2-4); Total Bilirubin 0.5 mg/dL (0.2-1.0); Total Protein 7.2 g/dL (6.4-8.9)
[2017-05-04] MEDS ORDERED: Ketorolac INJ* 30 MG/ML 1 ML VIAL IV PUSH ONE (15:07)
[2017-05-04] MEDS ORDERED: Morphine INJ* 4 MG/ML 1 ML SYRINGE IV ONE (15:21)
[2017-05-04 15:51] LABS: Urine Bacteria Absent (Absent); Urine Bilirubin Negative (Negative); Urine Glucose Negative (Negative); Urine Nitrite Negative (Negative)
--- NOTE | 2017-05-04 16:13 | RAD ---
INDICATION: Right knee swelling COMPARISON: None TECHNIQUE: 2 view radiograph of the right knee. FINDINGS: On the lateral view of the right knee there is mild subcutaneous thickening overlying the knee joint and patella. The visualized bones are well-corticated and properly aligned. The joint spaces are properly maintained. There is no radiographic evidence of joint effusion. There is no acute fracture, dislocation or other focal bony abnormality. IMPRESSION: Possible superficial subcutaneous thickening depicted on the lateral view of the knee radiograph without radiographically apparent fracture or large intra-articular effusion. If the patient's symptoms persist, follow-up imaging is recommended.
[2017-05-04] MEDS ORDERED: Ondansetron INJ* 2 MG/ML VIAL IV PRN (16:35)
[2017-05-04] MEDS ORDERED: traMADol TAB* 50 MG PO PRN (16:35)
[2017-05-04] MEDS ORDERED: Morphine INJ* 2 MG/ML 1 ML SYRINGE IV PRN (16:35)
[2017-05-04] MEDS ORDERED: Acetaminophen TAB* 325 MG PO PRN (16:35)
[2017-05-04] MEDS ORDERED: HYDROcodone/ACETAMIN 5-325 MG* 1 TAB PO PRN (16:40)
[2017-05-04] MEDS ORDERED: cefTRIAXone VIAL(*) 1,000 MG in NS 0.9% 50 ML* 50 ML IVPB SCH (17:00)
[2017-05-04] MEDS: NS 0.9% 1000 ML* 1,000 ML IV SCH (17:46)
[2017-05-04] MEDS ORDERED: Nicotine Patch Removal NOTE FOLLOW UP SCH (21:00)
[2017-05-04] MEDS ORDERED: Mouth Piece, Nicotine* 1 EACH CARTRIDGE INH PRN (21:42)
[2017-05-04] MEDS: Nicotine Inhaler* 10 MG AMP INH PRN (22:02)
[2017-05-04] MEDS: Heparin VIAL(*) 5000 UNITS/ML VIAL (FIVE THOUSAND) SUBCUT SCH (22:16)
[2017-05-05] MEDS: NS 0.9% 1000 ML* 1,000 ML IV SCH (03:26)
--- NOTE | 2017-05-05 03:40 | HP ---
CC: Dr. Johns* HISTORY AND PHYSICAL: DATE OF ADMISSION: 05/04/17 PRIMARY CARE PROVIDER: None. ATTENDING PHYSICIAN WHILE IN THE HOSPITAL: Sasha Bundy DO * (report dictated by James Black NP). CONSULTING ORTHOPEDIST: Deacon Johns MD CHIEF COMPLAINT: Right knee redness. HISTORY OF PRESENT ILLNESS: Mr. Mckinney is a 51-year-old male patient. He has a history of asthma as a child, but he has grown out of it. He does carry a history of tobacco abuse. He comes in today stating he noted on Friday that his pants leg was rubbing on his right knee and that was irritating him, so he pulled up his pants leg and he noticed he had an area of erythema, redness, and pain there. To his knowledge he had no cuts, scrapes, bruises or abrasions to the knee. He had no trauma to the knee. He was concerned because of the redness. He went to the Urgent Care and according to him he was started on Bactrim. He was given a dose of probably IM Rocephin and the area of the redness was marked by Urgent Care and in 24 hours the redness was getting worse. He actually came into the ER yesterday. There was a concern that this maybe Lyme. He was started on doxy; however, despite being on doxy and Bactrim for 24 to 48 hours now, the redness increased again. He was having more pain and swelling in the knee, so came back to the ER. He did have chills last night , but not having any sweats. He does not admit to having a fever. He denies any drainage or discharge coming from the knee. He was concerned because the redness was not getting any better and he came into the hospital. He denies having any chest pain. No shortness of breath. Denied having any nausea or vomiting. He denied having any other symptoms like dysuria. He was evaluated in the ER by Dr. Cevallos, it was noted his white count was elevated. He was evaluated by Dr. Johns. There was a concern for cellulitis and the hospitalist service was asked to evaluate for admission. PAST MEDICAL HISTORY: Significant for: 1. Tobacco abuse. 2. Asthma as a child. PAST SURGICAL HISTORY: 1. He has had a left ankle surgery. 2. ORIF, left thumb. 3. Right wrist surgery. 4. Carpal tunnel surgery. HOME MEDICATIONS: Currently include: 1. Doxycycline 100 mg p.o. b.i.d. 2. [place] 1 tablet p.o. b.i.d. 3. Ibuprofen 400 mg p.o. daily as needed. ALLERGIES TO MEDICATIONS: Include PENICILLIN. FAMILY HISTORY: Mother's history reviewed and noncontributory. Father did have a history of cancer. SOCIAL HISTORY: He is a pack-a-day smoker for about 30 years. Rarely drinks alcohol. He is engaged. Surrogate decision maker is his fiancee. REVIEW OF SYSTEMS: There is no documented fever. He denied having any significant weight change. There was no double vision. There is no ear discharge. He denied having any rhinorrhea. No sore throat. No thyroid enlargement. Denies having any chest pain. There is no orthopnea. There is no nocturnal dyspnea. There is no abdominal pain. There is no nausea, no vomiting. No dysuria, no frequency. No seizure. No loss of consciousness. No pruritus, and no skin ulcerations. Review of 14 systems was completed, all others are negative. PHYSICAL EXAMINATION GENERAL: At this time, Mr. Mckinney is a 51-year-old male patient. He appears well nourished, well developed. He does not appear to be in any acute distress. VITAL SIGNS: Blood pressure 150/99, pulse of 76, respirations 18, O2 sat 96%, and temperature 97.8. HEENT: Head is atraumatic and normocephalic. Eyes: EOMs are intact. Sclerae are anicteric and not pale. Throat: Oral mucosa appear to be moist. No oropharyngeal erythema. NECK: Supple. LUNGS: Clear to auscultation bilaterally. No wheezes, rales or rhonchi. HEART: Sounds S1 and S2. Regular rate and rhythm. No murmurs, rubs or gallops. ABDOMEN: Soft, it is flat and nontender. Bowel sounds are present. EXTREMITIES: Pulses were 2+ throughout. He is able to move all 4 extremities with 5/5 strength. He does have pain with flexion and extension of the right knee. NEUROLOGIC: He is awake, alert, and oriented x3. No gross focal deficits. SKIN: His skin is intact. He does have an erythema noted to the right knee, just above the right knee, which does extend to the lateral aspect of his knee. DIAGNOSTIC STUDIES/LAB DATA: Labs reveal a WBC of 12.5, RBC of 4.55, hemoglobin of 14.6, hematocrit of 44, and a platelet count of 245. PTT of 28.6. Sodium 130, potassium 4.0, chloride 100, bicarb 26, BUN 11, creatinine 1.02, glucose of 123, calcium 9.4. Total bili 0.5, AST 17, ALT 11, alk phos 49. CRP was 68. Urine was obtained, it was negative. Knee x-ray today showed possible superficial subcutaneous thickening detected on the lateral view of the knee. Radiograph without radiographic apparent fracture or large intraarticular effusion. Old medical records were reviewed. ASSESSMENT AND PLAN: Mr. Mckinney is a 51-year-old male patient coming into the ER today with complaints of knee erythema and redness to the right lower extremity and on evaluation it appeared to be getting worse. Dr. Cevallos did see the patient yesterday and it appears to be worse from yesterday. He will be admitted under inpatient status for: 1. Right lower extremity cellulitis: At this point, Dr. Johns did evaluate the patient and it was felt that this does not require surgery. At this point he felt that the infection is not into the knee, he feels that the patient does not have any septic joint. Plan is to go ahead and put the patient on Rocephin. I will send off Lyme serology. Blood cultures were sent yesterday and are pending. We will continue to follow these. I will go ahead and demarcate the knee and we will continue to monitor this and Orthopedics will be following. 2. Asthma: Not an active issue currently, we will monitor. 3. Tobacco abuse: I did order a nicotine patch. 4. DVT prophylaxis: He will be placed on heparin subcu. 5. Code status: Full code. 6. Fluids, electrolytes, and nutrition: He can have a regular diet. TIME SPENT: Time spent on the admission was 60 minutes, with greater than half the time spent [id number] with the patient obtaining my history and physical, the other half of the time was spent going over the plan of care and implementing my plan of care. I did discuss the plan of care with my attending, Dr. Bundy, she is in agreement. JAMES BLACK THERAPEUTIC SALES SPECIALIST [id number]/[facility] #: [id number] [facility]ITALZane
[2017-05-05] MEDS: Heparin VIAL(*) 5000 UNITS/ML VIAL (FIVE THOUSAND) SUBCUT SCH ×2 (06:13→16:10)
[2017-05-05 06:58] LABS: Hematocrit 43 % (42-52); Hemoglobin 14.4 g/dl (14.0-18.0); Mean Corpuscular HGB Conc 33 g/dl (31-36); Mean Corpuscular Hemoglobin 32 pg (27-31); Mean Corpuscular Volume 97 fL (80-94); Mean Platelet Volume 9 um3 (7.4-10.4); Red Blood Count 4.47 10^6/ul (4.0-5.4); Red Cell Distribution Width 13 % (10.5-15)
[2017-05-05 07:10] LABS: BUN/Creatinine Ratio 8.1 (8-20); C Reactive Protein 54.56 mg/L (< 5.00); Calcium 8.8 mg/dL (8.6-10.3); EGFR African American 121.1 (>60); EGFR Non-African American 94.1 (>60); Potassium 4.4 mmol/L (3.5-5.0)
[2017-05-05 09:31] LABS: Erythrocyte Sed Rate 26 mm/Hr (0-20)
[2017-05-05] MEDS: Nicotine Inhaler* 10 MG AMP INH PRN (09:48)
[2017-05-05] MEDS ORDERED: Nicotine PATCH 21 MG/24 HR* PATCH TRANSDERM SCH ×2 (10:00→16:40)
--- NOTE | 2017-05-05 13:01 | RAD ---
Indication: Right anterior knee edema. Real-time sonography of the right knee demonstrates fluid in the lateral aspect of the knee superficial to the joint space. Soft tissue swelling is noted. IMPRESSION: Fluid collection in the lateral portion of the knee superior to the patella and likely superficial to the joint space.
--- NOTE | 2017-05-05 14:19 | DCNOTE ---
Subjective Date of Service: 05/05/17 Interval History: Mr. Mckinney states that he is feeling much better today with decreased redness, swelling and pain to his right lower extremity. He denies chest pain, SOB, nausea, or abdominal pain. Objective Active Medications: Acetaminophen (Tylenol Tab*) 650 mg PO Q4H PRN Hydrocodone Bitart/Acetaminophen ([place] 5-325 Tab*) 1 tab PO Q6HR PRN Device (Nicotine Mouth Piece*) 1 each INH .USE WITH NICOTROL PRN Heparin Sodium (Porcine) (Heparin Vial(*)) 5,000 units SUBCUT Q8HR ANNIE Sodium Chloride (Ns 0.9% 1000 Ml*) 1,000 mls @ 100 mls/hr IV PER RATE ANNIE Ceftriaxone Sodium 1,000 mg/ (Sodium Chloride) 50 mls @ 200 mls/hr IVPB Q24H ANNIE Morphine Sulfate (Morphine Inj (Syringe)*) 2 mg IV Q4H PRN Nicotine (Nicotine Inhaler*) 10 mg INH Q2H PRN Nicotine (Nicotine Patch 21 Mg/24 Hr*) 1 patch TRANSDERM DAILY@0800 [facility] Ondansetron HCl (Zofran Inj*) 4 mg IV Q6H PRN Vital Signs 05/04/17 05/04/17 05/04/17 16:39 16:41 16:53 Temperature Pulse Rate 76 Respiratory 12 Rate Blood Pressure 150/99 (mmHg) O2 Sat by Pulse 96 Oximetry 05/04/17 05/04/17 05/04/17 17:25 19:58 20:00 Temperature 98.1 F 98.2 F Pulse Rate 78 81 Respiratory 12 24 16 Rate Blood Pressure 153/86 162/90 (mmHg) O2 Sat by Pulse 97 98 Oximetry 05/04/17 05/05/17 05/05/17 23:28 03:46 07:24 Temperature 98.5 F 98.0 F 97.8 F Pulse Rate 79 72 79 Respiratory 20 16 16 Rate Blood Pressure 140/80 150/79 160/87 (mmHg) O2 Sat by Pulse 98 98 95 Oximetry 05/05/17 05/05/17 08:00 12:09 Temperature 98.2 F Pulse Rate 72 Respiratory 16 20 Rate Blood Pressure 146/79 (mmHg) O2 Sat by Pulse 97 Oximetry Oxygen Devices in Use Now: None Appearance: Male sitting on edge of bed in NAD Eyes: No Scleral Icterus Ears/Nose/Mouth/Throat: Mucous Membranes Moist Neck: Trachea Midline Respiratory: Symmetrical Chest Expansion and Respiratory Effort, Clear to Auscultation Cardiovascular: NL Sounds; No Murmurs; No JVD, No Edema Abdominal: NL Sounds; No Tenderness; No Distention Lymphatic: No Cervical Adenopathy Extremities: No Edema Skin: - - Decreased erythema noted from original traced outline, two small areas of erythema to lateral knee above and below joint, painful to palpation Neurological: Alert and Oriented x 3, NL Muscle Strength and Tone Nutrition: Taking PO's Result Diagrams: 05/05/17 06:37 05/05/17 06:37 Assess/Plan/Problems-Billing Assessment: Mr. Mckinney is a 51 yo male with a PMH of childhood asthma and tobacco abuse who was admitted on 05/04/17 with failure of outpatient treatment for right knee cellulitis. - Patient Problems (1) Cellulitis Comment: - R knee, markedly improved overnight. - Appeciate ID consult. - US of knee showed only a small superficial fluid collection. - Plan for three weeks of clindamycin and follow up with Dr. Puente outpatient. - Appreciate ortho consult, no evidence of joint involvement. (2) Tobacco abuse Comment: - Smoking cessation counseling offered. Status and Disposition: Switch to OBV since only needed 24 hrs hospitalization. Discharge to home.
[2017-05-05 16:20] VITALS: BP 153/93
--- NOTE | 2017-05-05 22:11 | CONS ---
CONSULTATION REPORT: DATE OF CONSULT: 05/05/17 REQUESTING PROVIDER: Teodora Duke NP CONSULTING SERVICE: Infectious Disease. REASON FOR CONSULT: Right knee cellulitis. IMPRESSION: 1. Right anterior knee erythema and edema with decreased range of motion. No pain with weightbearing, overall all improving after 24 hours of ceftriaxone, has been on oral antibiotics for 2 days. No evidence of a septic joint. Prepatellar bursitis is a consideration particularly given his line of work, which includes working on the ground on [place]. 2. Obesity. 3. PENICILLIN ALLERGY. RECOMMENDATIONS: Continue ceftriaxone. We will check an ultrasound and look for an anterior knee collection with suppurative septic bursitis. HISTORY OF PRESENT ILLNESS: This is a 51-year-old man, otherwise healthy, admitted with right knee pain and swelling. He was well until Friday when he had onset of anterior knee tenderness, pain with walking long distances. No pain with weightbearing. He had some chills, no fevers. He was seen various times at [facility] and the ER, had a dose or two of IM ceftriaxone because of significant redness, which spread outside the outlined area. He was started on Bactrim pills for a day, then doxycycline for a day, because of ongoing redness and swelling. Came back to the ER yesterday and had an x-ray of the knee that showed subcutaneous thickening, no joint effusion. His white blood cell count was 12,000, then 10,000 today. He was continued on ceftriaxone. His range of motion and redness are continuing to improve. He has had no fevers or chills. His appetite is good. He is able to bear weight without pain. He does not have any other joint pain. PAST MEDICAL HISTORY: 1. Tobacco abuse. 2. Obesity. 3. Asthma as a child. PAST SURGICAL HISTORY: 1. Status post left ankle surgery. 2. Status post open reduction and internal fixation, left thumb. 3. Status post right wrist surgery. 4. Status post carpal tunnel surgery. MEDICATIONS: 1. Ceftriaxone 1 g a day IV. 2. Nicotine patch. 3. Nicotine inhaler. 4. Heparin subcu as injection. 5. Vicodin p.r.n. ALLERGIES TO MEDICATIONS: PENICILLIN. SOCIAL HISTORY: He lives in [place]. 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 FAMILY HISTORY: No recurrent infections. REVIEW OF SYSTEMS: All negative to full review of systems except as noted above. PHYSICAL EXAM: Vital Signs: Temperature 36.6, heart rate 80, respiratory rate 16, blood pressure 160/80, O2 sat 95% on room air. In general, he is awake, not in distress. HEENT: There is no conjunctival hemorrhage. Oropharynx without lesions. Neck is supple without nuchal rigidity. Lymph Nodes: There is no inguinal, axillary or epitrochlear lymphadenopathy. Heart has regular rate and rhythm without murmurs, rubs, or gallops. Lungs are clear to auscultation bilaterally. Abdomen: Soft, nontender, and nondistended. There is no splenomegaly. Skin: There are no rash or splinter hemorrhages. Musculoskeletal: Right knee, there is anterior mild edema, warmth, and trace erythema, two central areas of erythema on the anterior lower knee and medial upper knee which are nontender about 2 cm each. There is no wound. LABORATORY DATA: White blood cell count 10, hemoglobin 14, platelets 227. Creatinine 0.8, CRP of 55 down from 70. Please see impressions and recommendations outlined above, which I have discussed with Teodora Duke LINING SETTER. Thank you for asking me to see Mr. Mckinney in consultation. [id number]/CPS #: [id number] MTDZane
--- NOTE | 2017-05-06 14:25 | DS ---
DISCHARGE SUMMARY: DATE OF ADMISSION: 05/04/17 DATE OF DISCHARGE: 05/05/17 PRIMARY CARE PHYSICIAN: None. ATTENDING PHYSICIAN: Brendon Dior MD * (dictation provided by Teodora Duke NP). PRIMARY DIAGNOSIS: Right knee cellulitis. SECONDARY DIAGNOSES: 1. History of asthma as a child. 2. Tobacco abuse. MEDICATIONS AT THE TIME OF DISCHARGE: 1. Clindamycin 300 mg p.o. t.i.d. x3 weeks. 2. Ibuprofen p.r.n. HOSPITAL COURSE: Mr. Mckinney is a 51-year-old male with a past medical history of asthma as child who presented to the hospital on 05/04/17 with concern for right knee pain, redness and swelling. Please see the dictated H and P from James Black NP for complete details. In brief, the patient had knee pain, redness and swelling, which started on Friday. He knew of no injury to the area. He went to urgent care, was started on Bactrim, when he did not improve and actually the swelling and redness increased. He was seen in the ER and doxycycline was added out of concern that perhaps the patient had Lyme disease. He continued on doxycycline and Bactrim for another 24 to 48 hours. Despite this, he continued to have further pain, redness and swelling and therefore returned to the ED. Mr. Mckinney was admitted to the hospital overnight. He was seen in consultation by Dr. Johns from Orthopedic Surgery and he stated that there was no evidence that there was a septic joint and recommended antibiotic therapy. The patient was also seen in consultation by Dr. Hemant Puente from Infectious Diseases who recommended that the patient have a soft tissue ultrasound which is read as follows, "fluid collection in the lateral portion of the knees superior to the patella and likely superficial to the joint space." I did review this read with Dr. Regan and he felt that this was indeed a superficial collection that was approximately 2.5 cm x 0.6 cm. There was no evidence again that this was involving the joint. The patient was treated with ceftriaxone while inpatient, has had dramatic improvement in his pain, redness and swelling. He is able to ambulate. He has no significant pain with bearing weight. He has no fevers. His vital signs are stable. He has very mild elevation and white blood count to 12.5, is now back to normal. His CRP went from 68.88 to 54.56 overnight. He is tolerating oral intake well. Mr. Mckinney is medically stable for discharge to home. He will be placed on clindamycin orally and further recommendations of Dr. Puente and will be following up with Dr. Puente in the outpatient setting. DISPOSITION: To home. DIET: Regular. ACTIVITY: As tolerated. FOLLOWUP PLANS: 1. Please follow up with Dr. Puente in the next 2 weeks. 2. The patient is strongly encouraged towards smoking cessation. TIME SPENT: Approximately 60 minutes were spent in the discharge of this patient, more than half that time was spent with the patient at the bedside reviewing the events leading up this hospitalization, performing the physical examination, and reviewing the plan of care. TEODORA DUKE NP [id number]/CPS #: [id number] ESVIN
== END 2017-05-05 16:10 | disposition home or self-care (01) ==
LOC: ED 13:39 → MED 16:30 → INTOOBSV 16:30
PROVIDERS: ADMIT Hospitalist; ATTEND Hospitalist
DX: L03.115 Cellulitis of right lower limb (principal); M79.604 Pain in right leg; F17.210 Nicotine dependence, cigarettes, uncomplicated; Z88.0 Allergy status to penicillin
CPT/HCPCS: 36415; 80048; 80053; 81003; 81015; 85025; 85610; 85652; 85730; 86140; 86618; 96365; 96367; 96368; 96372; 96375; 99284; A9270-GY; G0378; J0696; J0744; J1644; J1885; J3370

== ENCOUNTER 2018-01-07 13:43 | Emergency (ER) | payer BC ==
[2018-01-07 14:01] VITALS: BP 159/103
--- NOTE | 2018-01-07 14:53 | UC ---
Ear Complaint HPI - HPI Summary HPI Summary: ONSET TODAY OF RIGHT EAR PAIN AND MUFFLED HEARING. NO DRAINAGE. NO URI SX. NO FEVER. - History of Current Complaint Chief Complaint: UCEar Stated Complaint: EAR PAIN Time Seen by Provider: 01/07/18 14:36 Hx Obtained From: Patient Onset/Duration: Gradual Onset, Lasting Hours, Still Present Severity Initially: Moderate Severity Currently: Moderate Pain Intensity: 8 Pain Scale Used: 0-10 Numeric Aggravating Factors: Nothing Alleviating Factors: Nothing Associated Signs/Symptoms: Positive: Hearing Loss. Negative: Discharge, URI Symptoms - Allergies/Home Medications Allergies/Adverse Reactions: Allergies Allergy/AdvReac Type Severity Reaction Status Date / Time Penicillins Allergy Unknown Verified 01/07/18 14:02 Reaction Details PMH/Surg Hx/FS Hx/Imm Hx Respiratory History: Asthma Other History Of: Negative For: HIV, Hepatitis B, Hepatitis C, Anticoagulant Therapy - Surgical History Surgical History: Yes Surgery Procedure, Year, and Place: 1990 [facility] CAR[facility]AL TUNNEL REPAIR BILATERALLY/ RT HAND REPAIR [facility]. ORIF L THUMB [facility]. 2001 RT HAND INJURY [facility]. left ankle tendon repair - Family History Known Family History: Positive: Hypertension - father Negative: Cardiac Disease - uncles with cardiac dz in late 60s. - Social History Alcohol Use: Occasionally Substance Use Type: None Smoking Status (MU): Heavy Every Day Tobacco Smoker Type: Cigarettes Amount Used/How Often: 1 PPD Length of Time of Smoking/Using Tobacco: 25 years Have You Smoked in the Last Year: Yes Household Exposure Type: Cigarettes - Immunization History Most Recent Influenza Vaccination: unknown Most Recent Pneumonia Vaccination: none Review of Systems Constitutional: Negative ENT: Ear Ache Respiratory: Negative Cardiovascular: Negative Gastrointestinal: Negative All Other Systems Reviewed And Are Negative: Yes Physical Exam Triage Information Reviewed: Yes Appearance: Well-Appearing, No Pain Distress, Well-Nourished Vital Signs: Initial Vital Signs Temp 98 F 01/07/18 13:57 Pulse 80 01/07/18 13:57 Resp 15 01/07/18 13:57 BP 159/103 01/07/18 13:57 Pulse Ox 98 01/07/18 13:57 Vital Signs Reviewed: Yes Eyes: Positive: Conjunctiva Clear ENT: Positive: Hearing grossly normal, Pharynx normal, Other - RIGHT EAC EDEMATOUS AND TENDER. TM PARTIALLY OBSTRUCTED. LEFT EAC AND TM NORMAL Neck: Positive: Supple, Nontender, No Lymphadenopathy Respiratory Exam: Normal Cardiovascular Exam: Normal Abdomen Description: Positive: Soft Musculoskeletal: Positive: No Edema Neurological: Positive: Alert Psychological: Positive: Age Appropriate Behavior Skin: Negative: rashes Ear Complaint Course/Dx - Differential Dx/Diagnosis Provider Diagnoses: RIGHT OTITIS EXTERNA Discharge - Sign-Out/Discharge Documenting (check all that apply): Discharge - Discharge Plan Condition: Stable Disposition: HOME Prescriptions: Cephalexin CAP* [Keflex 500 CAP*] 1,000 mg PO BID #28 cap Ciproflox/Dexameth OTIC.SUSP* [Ciprodex Otic*] 4 drop BOTH EARS BID #1 bottle Patient Education Materials: Otitis Externa (ED) Referrals: No Primary Care Phys,NOPCP [Primary Care Provider] - Additional Instructions: CALL THE NUMBER BELOW FOR ASSISTANCE IN ESTABLISHING WITH A PCP An additional resource available to assist in finding the appropriate physician for your health care needs is the [facility] ([facility]). You may contact them by calling [phone]. UNABLE TO FULLY VISUALIZE TM DUE TO EDEMA IN EAR CANAL. TAKE THE CEPHALEXIN TO COVER FOR POSSIBLE MIDDLE EAR INFECTION WELL. FOLLOW-UP WITH ENT IF YOU ARE NOT IMPROVING EXPECTED. [facility] [place] [address] [facility] [phone] - Billing Disposition and Condition Condition: STABLE Disposition: HOME
== END 2018-01-07 15:05 | disposition home or self-care (01) ==
LOC: UCEAST 13:43
DX: H60.91 Unspecified otitis externa, right ear (principal); J45.909 Unspecified asthma, uncomplicated; Z88.0 Allergy status to penicillin; F17.210 Nicotine dependence, cigarettes, uncomplicated
CPT/HCPCS: 99212; G0463

== ENCOUNTER 2018-05-07 12:12 | Emergency (ER) | payer BC ==
[2018-05-07] MEDS ORDERED: NS 0.9% 1000 ML* 1,000 ML IV ONE (13:02)
[2018-05-07 13:16] LABS: Hematocrit 45 % (42-52); Hemoglobin 15.1 g/dl (14.0-18.0); Mean Corpuscular HGB Conc 34 g/dl (31-36); Mean Corpuscular Hemoglobin 32 pg (27-31); Mean Corpuscular Volume 95 fL (80-94); Platelet Count 272 10^3/ul (150-450); Red Blood Count 4.76 10^6/ul (4.00-5.40); Red Cell Distribution Width 13 % (10.5-15); White Blood Count 8.5 10^3/ul (3.5-10.8)
[2018-05-07 13:33] LABS: ABS Basophils 0.1 10^3/ul (0-0.2); ABS Eosinophils 0.2 10^3/ul (0-0.6); ABS Lymphocytes 1.8 10^3/ul (1.0-4.8); ABS Monocytes 0.8 10^3/ul (0-0.8); ABS Neutrophils 5.5 10^3/ul (1.5-7.7); ABS Nucleated RBC 0 10^3/ul; Eosinophil % 2.3 % (0-6); Lymphocyte % 21.9 % (25-47); Nucleated Red Blood Cells % 0
[2018-05-07 13:35] LABS: EGFR Non-African American 82.6 (>60)
--- NOTE | 2018-05-07 15:05 | RAD ---
Indication: Dizziness. CT of the brain was performed without IV contrast. Ventricular structures are midline. No midline shift is noted. The extra-axial spaces are unremarkable. There is no evidence of intracranial mass or hemorrhage. No other high or low density lesions are identified. Mastoid air cells and paranasal sinuses are unremarkable. IMPRESSION: THERE IS NO EVIDENCE OF INTRACRANIAL MASS OR HEMORRHAGE NOTED.
[2018-05-07 15:30] VITALS: BP 163/90
--- NOTE | 2018-05-08 21:47 | ED ---
Complex/Multi-Sys Presentation - HPI Summary HPI Summary: Pt. is a 52 y.o male presenting to the ED for vague complaints of generalized weakness x 1 day. Pt. states he woke up this morning and felt generally weak. He also notes that he felt as though his thought pattern was disturbed and he was having difficulty performing simple task. Pt. denies unilateral numbness, tingling, or weakness. Pt. denies CP or SOB. Denies recent illness. Denies past medical history. Symptoms are moderate in severity. Pt. 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 - History Of Current Complaint Chief Complaint: EDWeakness Time Seen by Provider: 05/07/18 12:51 Hx Obtained From: Patient - Allergies/Home Medications Allergies/Adverse Reactions: Allergies Allergy/AdvReac Type Severity Reaction Status Date / Time Penicillins Allergy Unknown Verified 01/07/18 14:02 Reaction Details Home Medications: Home Medications Ibuprofen TAB* [Motrin TAB* 400 MG] 400 mg PO Q6H PRN 05/07/18 [History Confirmed 05/07/18] PMH/Surg Hx/FS Hx/Imm Hx Previously Healthy: Yes Endocrine/Hematology History: Denies: Hx Anticoagulant Therapy, Hx Diabetes, Hx Thyroid Disease Cardiovascular History: Denies: Hx Congestive Heart Failure, Hx Deep Vein Thrombosis, Hx Hypertension , Hx Myocardial Infarction, Hx Pacemaker/ICD Respiratory History: Reports: Hx Asthma Denies: Hx Chronic Obstructive Pulmonary Disease (COPD), Hx Lung Cancer, Hx Pneumonia, Hx Pulmonary Embolism GI History: Denies: Hx Gall Bladder Disease, Hx Gastrointestinal Bleed, Hx Ulcer, Hx Urosepsis History: Denies: Hx Kidney Stones, Hx Renal Disease Sensory History: Denies: Hx Contacts or Glasses, Hx Hearing Aid Opthamlomology History: Denies: Hx Contacts or Glasses Neurological History: Denies: Hx Dementia, Hx Migraine, Hx Seizures, Hx Transient Ischemic Attacks (TIA) Psychiatric History: Denies: Hx Anxiety, Hx Depression, Hx Panic Disorder, Hx Schizophrenia, Hx Bipolar Disorder - Surgical History Surgery Procedure, Year, and Place: 1990 [facility] CAR[facility]AL TUNNEL REPAIR BILATERALLY/ RT HAND REPAIR [facility]. ORIF L THUMB [facility]. 2001 RT HAND INJURY [facility]. left ankle tendon repair Hx Anesthesia Reactions: No Infectious Disease History: No Infectious Disease History: Denies: Hx Clostridium Difficile, Hx Hepatitis, Hx Human Immunodeficiency Virus (HIV), Hx of Known/Suspected MRSA, Hx Shingles, Hx Tuberculosis, Hx Known/ Suspected VRE, Hx Known/Suspected VRSA, History Other Infectious Disease, Traveled Outside the [place] in Last 30 Days - Family History Known Family History: Positive: Hypertension - father Negative: Cardiac Disease - uncles with cardiac dz in late 60s. - Social History Occupation: Employed Full-time Lives: Alone Alcohol Use: Rare Hx Substance Use: No Substance Use Type: Reports: None Hx Tobacco Use: Yes Smoking Status (MU): Heavy Every Day Tobacco Smoker Type: Cigarettes Amount Used/How Often: 1 PPD Length of Time of Smoking/Using Tobacco: 25 years Have You Smoked in the Last Year: Yes Review of Systems Constitutional: Negative Eyes: Negative ENT: Negative Cardiovascular: Negative Respiratory: Negative Gastrointestinal: Negative Genitourinary: Negative Musculoskeletal: Negative Skin: Negative Positive: Weakness - generalized All Other Systems Reviewed And Are Negative: Yes Physical Exam Triage Information Reviewed: Yes Vital Signs On Initial Exam: Initial Vitals Temp Pulse Resp BP Pulse Ox 97.7 F 81 18 175/92 98 05/07/18 12:22 05/07/18 12:22 05/07/18 12:22 05/07/18 12:22 05/07/18 12:22 Vital Signs Reviewed: Yes Appearance: Positive: Well-Appearing - Pt. sitting on bed in NAD> Skin: Positive: Warm, Dry Head/Face: Positive: Normal Head/Face Inspection Eyes: Positive: Normal, EOMI, STEPHANIE Neck: Positive: Supple Respiratory/Lung Sounds: Positive: Clear to Auscultation, Breath Sounds Present Cardiovascular: Positive: Normal, RRR Musculoskeletal: Positive: Normal, Strength/ROM Intact Neurological: Positive: Normal, Alert, Oriented to Person Place, Time, CN Intact II-III, Normal Gait, Finger to Nose - normal, Facial Symmetry Psychiatric: Positive: Affect/Mood Appropriate Diagnostics - Vital Signs Vital Signs Temp Pulse Resp BP Pulse Ox 05/07/18 15:28 97.6 F 77 16 163/90 95 05/07/18 12:22 97.7 F 81 18 175/92 98 - Laboratory Lab Results: Lab Results 05/07/18 05/07/18 Range/Units 13:06 13:06 WBC 8.5 (3.5-10.8) 10^3/ul RBC 4.76 (4.00-5.40) 10^6/ul Hgb 15.1 (14.0-18.0) g/dl Hct 45 (42-52) % MCV 95 H (80-94) fL MCH 32 H (27-31) pg MCHC 34 (31-36) g/dl RDW 13 (10.5-15) % Plt Count 272 (150-450) 10^3/ul MPV 8.0 (7.4-10.4) um3 Neut % (Auto) 64.9 (38-83) % Lymph % (Auto) 21.9 L (25-47) % [place] % (Auto) 10.0 H (0-7) % Eos % (Auto) 2.3 (0-6) % Baso % (Auto) 0.9 (0-2) % Absolute Neuts (auto) 5.5 (1.5-7.7) 10^3/ul Absolute Lymphs (auto) 1.8 (1.0-4.8) 10^3/ul Absolute Monos (auto) 0.8 (0-0.8) 10^3/ul Absolute Eos (auto) 0.2 (0-0.6) 10^3/ul Absolute Basos (auto) 0.1 (0-0.2) 10^3/ul Absolute Nucleated RBC 0 10^3/ul Nucleated RBC % 0 Sodium 135 (135-145) mmol/L Potassium 4.2 (3.5-5.0) mmol/L Chloride 100 L (101-111) mmol/L Carbon Dioxide 29 (22-32) mmol/L Anion Gap 6 (2-11) mmol/L BUN 13 (6-24) mg/dL Creatinine 0.96 (0.67-1.17) mg/dL Est GFR ( Amer) 99.9 (>60) Est GFR (Non-Af Amer) 82.6 (>60) BUN/Creatinine Ratio 13.5 (8-20) Glucose 106 H (70-100) mg/dL Calcium 9.4 (8.6-10.3) mg/dL Magnesium 2.2 (1.9-2.7) mg/dL Total Bilirubin 0.60 (0.2-1.0) mg/dL AST 30 (13-39) U/L ALT 13 (7-52) U/L Alkaline Phosphatase 54 (34-104) U/L Total Protein 7.0 (6.4-8.9) g/dL Albumin 4.2 (3.2-5.2) g/dL Globulin 2.8 (2-4) g/dL Albumin/Globulin Ratio 1.5 (1-3) Result Diagrams: 05/07/18 13:06 05/07/18 13:06 Lab Statement: Any lab studies that have been ordered have been reviewed, and results considered in the medical decision making process. Complex Multi-Symp Course/Dx Course Of Treatment: Pt. presenting to the ER for c/o generalized weakness and c /o feeling his speach and actions are slow. BP elevated. He has no neuro deficits on exam. Will obtain basic labs and head ct to r/o CVA, mass, bleed. Fluids ordered. Labs are unremarkable. Head CT is negative for acute findings per radiology. On re-exam pt. states his sxs are improving and he is feeling better. Pt. was able to ambulate to the bathroom without difficulty. Will dc home to .u with PCP. Advised to increase fluids and rest. To return to ER if symptoms change or worsen. Pt. understands and agrees with plan. - Diagnoses Differential Diagnoses/HQI/PQRI: CVA, Metabolic Abnormality Provider Diagnoses: Weakness Discharge - Sign-Out/Discharge Documenting (check all that apply): Patient Departure - Discharge Plan Condition: Good Disposition: HOME Patient Education Materials: Weakness (ED) Referrals: [facility] [Outside] No Primary Care Phys,NOPCP [Primary Care Provider] - Additional Instructions: Call the [facility] today to schedule a follow up appointment Increase fluids Return to ER if symptoms change or worsen - Billing Disposition and Condition Condition: GOOD Disposition: Home
== END 2018-05-07 15:28 | disposition home or self-care (01) ==
LOC: ED 12:12
DX: R53.1 Weakness (principal); F17.210 Nicotine dependence, cigarettes, uncomplicated; Z88.0 Allergy status to penicillin
CPT/HCPCS: 36415; 70450; 80053; 83735; 85025; 86618; 99282